=== PATIENT | female | born 2000 | race Caucasian/White ===

== ENCOUNTER 2018-05-24 17:41 | Emergency (ER) | payer MEDICAID ==
[2018-05-24] MEDS ORDERED: ACETAMINOPHEN 325 MG TAB PO ONE (18:08)
--- NOTE | 2018-05-24 18:12 | Emergency Department Record ---
History of Present Illness - General Chief Complaint: Chest Pain Stated Complaint: CHEST PAIN Time Seen by Provider: 05/24/18 18:00 Source: Patient Mode of Arrival: Ambulatory Limitations: No limitations - History of Present Illness Initial Comments: The patient is here due to R sided CP for about 20 hours. The onset was while sitting at a bonfire last night. She denies any SOB, FLACO, nausea or sweating with the pain. The patient describes the pain as an aching sharp pain located to the R of the sternum. It is not worse with exertion, bending, twisting, or deep breaths. She has no hx of similar problems and no recent illnesses. MD Complaint: Chest pain Onset/Timin -: Hour(s) Onset: During rest Pain Location: Right chest Pain Radiation: Other Severity scale (1-10): 5 Quality: Aching, Sharp Consistency: Constant Improves With: Nothing Worsens With: Nothing - Related Data Home Medications Medication Instructions Recorded Confirmed Last Taken Ranitidine HCl [Zantac] 150 mg PO BID 05/24/18 05/24/18 05/24/18 Trazodone HCl 50 mg PO QHS 05/24/18 05/24/18 05/22/18 Allergies Allergy/AdvReac Type Severity Reaction Status Date / Time No Known Drug Allergies Allergy Verified 05/24/18 18:01 Travel Screening - Travel/Exposure Within Last 30 Days Have you traveled within the last 30 days?: No - Travel/Exposure Within Last Year Have you traveled outside the [place] in the last year?: No - Additonal Travel Details Have you been exposed to anyone with a communicable illness?: No - Travel Symptoms Symptom Screening: None Review of Systems Constitutional: Denies: Chills, Fever Eyes: Denies: Eye discharge ENT: Denies: Congestion Respiratory: Denies: Cough, Dyspnea Cardiovascular: Reports: Chest pain. Denies: Arrhythmia Endocrine: Denies: Fatigue Gastrointestinal: Denies: Abdominal pain Genitourinary: Denies: Dysuria Musculoskeletal: Denies: Back pain Past Medical History - SOCIAL HISTORY Smoking Status: Light tobacco smoker (<10/day) Alcohol Use: None Drug Use: Rare Drug Use Detail:: Marijuana - RESPIRATORY Hx Respiratory Disorders: Yes Hx Asthma: Yes Hx Bronchitis: Yes - CARDIOVASCULAR Hx Cardio Disorders: No - NEURO Hx Neuro Disorders: Yes Hx Headaches: Yes - GI Hx GI Disorders: Yes Hx Reflux: Yes - Hx Genitourinary Disorders: Yes Hx UTI: Yes - ENDOCRINE Hx Endocrine Disorders: No - MUSCULOSKELETAL Hx Musculoskeletal Disorders: No - PSYCH Hx Psych Problems: Yes Hx Anxiety: Yes Hx Depression: Yes - HEMATOLOGY/ONCOLOGY Hx Hematology/Oncology Disorders: Yes Hx Anemia: Yes Family Medical History Any Significant Family History?: No Physical Exam - General General Appearance: Alert, Oriented x3, Cooperative, No acute distress - Head Head exam: Atraumatic, Normocephalic, Normal inspection - Eye Eye exam: Normal appearance, PERRL - Neck Neck exam: Normal inspection, Full ROM. negative: Tenderness - Respiratory Respiratory exam: Normal lung sounds bilaterally, Chest wall tenderness (The R upper CP is 100% reproducible to palpation.). negative: Respiratory distress - Cardiovascular Cardiovascular Exam: Regular rate, Normal rhythm, Normal heart sounds - GI/Abdominal GI/Abdominal exam: Soft, Normal bowel sounds. negative: Tenderness - Extremities Extremities exam: Normal inspection, Full ROM, Normal capillary refill. negative: Calf tenderness, Pedal edema, Tenderness Image of Full Body: 1 - Area of pain and reproducible tenderness. - Back Back exam: Reports: Normal inspection - Neurological Neurological exam: Alert, Normal gait. negative: Abnormal gait, Motor sensory deficit - Skin Skin exam: negative: Rash Course Vital Signs 05/24/18 17:50 Temperature 98.9 F Pulse Rate 79 Respiratory 16 Rate Blood Pressure 124/73 Pulse Ox 98 - Reevaluation(s) Reevaluation #1: The patient is smiling and laughing and is playing with her daughter. I explained to her that her tests are all WNL's and due to the fact she is 18 years old with no cardiac risk factors and neg labs, CXR, and EKG I strongly doubt any cardiac etiology. I also doubt any pulmonary issues due to the patient being low prob for PE by Wells criteria and PERC Neg. She is to use Tylenol or Motrin for pain and to see her PCP in 2-3 days for recheck. 05/24/18 18:56 Medical Decision Making - Data Complexity MDM Data: Labs Ordered and/or Reviewed, X-Ray Ordered and/or Reviewed - Lab Data Result diagrams: 05/24/18 18:16 05/24/18 18:16 - EKG Data -: EKG Interpreted by Me EKG: No Acute Changes - Radiology Data Radiology results: Report reviewed (CXR: Neg.) Disposition Disposition: Discharge Clinical Impression: Chest wall pain Disposition: Home, Self-Care Condition: (2) Stable Instructions: Chest Wall Pain (ED) Additional Instructions: PLease use Tylenol or Motrin for pain and please see your family doctor in 2-3 days if not better. Return to the ER for any worsening pain, fever, trouble breathing or shortness of breath. Forms: Patient Portal Access Time of Disposition: 18:59 Quality - Quality Measures Quality Measures: N/A - Blood Pressure Screening View Details: Yes Does Patient Have Any of the Following: No Blood Pressure Classification: Pre-Hypertensive BP Reading Systolic Measurement: 124 Diastolic Measurement: 73 Screening for High Blood Pressure: < Pre-Hypertensive BP, F/U Documented > [ [id number]] Pre-Hypertensive Follow-up Interventions: Referral to alternative/primary care provider.
[2018-05-24 18:22] LABS: BASO % 0.5 % (0-6); EOS % 3.8 % (0-6); GRAN % 57.1 % (47-80); HEMATOCRIT 39.8 % (35.0-47.0); HEMOGLOBIN 12.5 gm/dl (11.6-16.0); LYMPH % 31.1 % (16-45); MEAN CELL VOLUME 86.7 fl (81-97); MEAN CORPUSCULAR HEMOGLOBIN 27.2 pg (27-33); MEAN CORPUSCULAR HGB CONC 31.4 g/dl (32-36); MEAN PLATELET VOLUME 10.4 fl (7.4-10.4); MONO % 7.5 % (0-9); PLATELET COUNT 355 K/uL (130-400); RED BLOOD COUNT 4.59 M/uL (3.80-5.40); RED CELL DISTRIBUTION WIDTH 13.5 % (11.5-14.5)
[2018-05-24 18:35] LABS: BLOOD UREA NITROGEN 15 mg/dL (6-20); CREATININE 0.8 mg/dL (0.5-0.9); EST GLOMERULAR FILTRATION RATE > 60 mL/min
[2018-05-24 18:38] LABS: GLUCOSE,RANDOM 95 mg/dL (74-109)
[2018-05-24 18:41] LABS: CREATINE PHOSPHOKINASE 120 U/L (26-192)
[2018-05-24 18:43] LABS: CKMB < 1.0 ng/mL (<3.77)
--- NOTE | 2018-05-26 15:58 | RADIOLOGY REPORT ---
EXAM: CHEST 2 VIEWS HISTORY: CHEST PAIN FOR THE PAST DAY. TECHNIQUE: PA and lateral upright views of the chest were obtained. COMPARISON: None. FINDINGS: The heart, mediastinum, and pulmonary vasculature are normal. The lungs are clear. There is no pneumothorax or effusion. The bones appear intact. IMPRESSION: NEGATIVE CHEST. JOB NUMBER: [id number] MTDD
== END 2018-05-24 19:19 | disposition home or self-care (01) ==
LOC: ER 17:41
DX: R07.89 Other chest pain (principal); F17.210 Nicotine dependence, cigarettes, uncomplicated
CPT/HCPCS: 71046; 80048; 82550; 82553; 84484; 85025; 93005; 93010; 99284